=== PATIENT | male | born 1950 | race Two or more races ===

== ENCOUNTER 2016-05-20 15:44 | Emergency (ER) | payer OTHER, MEDICAID ==
[~2016-05-20] VITALS: Ht 182.9 cm; Wt 83.9 kg
[~2016-05-20 15:44] MED LIST: BACL10TA; CYCL1TAB18; INSLANTI
[2016-05-20] MEDS ORDERED: SODIUM CHLORIDE 0.9% 1,000 ML IV ONE (16:06)
[2016-05-20] MEDS ORDERED: LIDOCAINE 1% HCL (LOCAL ANESTH.) INJ 20ML MDV ONE (16:11)
[2016-05-20] MEDS ORDERED: TETANUS-DIPTH-ACEL PERTUSSIS 0.5ML SYRG IM ONE (16:15)
[2016-05-20] MEDS ORDERED: cefTRIAXone 1GM/50ML D5W 50 ML IV ONE (16:15)
[2016-05-20 16:41] LABS: Basophils # (auto) 0.1 uL; Basophils % (auto) 0.4 % (0.0-2.0); Eosinophils # (auto) 0.1 uL; Eosinophils % (auto) 0.5 % (0.0-7.0); Hematocrit 42.2 % (41.0-53.0); Hemoglobin 13.5 g/dL (13.5-17.5); Lymphocytes # (auto) 0.9 uL; Lymphocytes % (auto) 6.6 % (10.0-50.0); Mean Corpuscular Hemoglobin 29.8 pg (28.0-32.0); Mean Corpuscular Hgb Conc. 32.1 g/dL (32.0-36.0); Mean Corpuscular Volume 92.8 fL (80.0-100.0); Mean Platelet Volume 7.8 fL (7.4-10.4); Monocytes # (auto) 0.8 uL; Monocytes % (auto) 6.1 % (0.0-12.0); Neutrophils # (auto) 11.8 uL; Neutrophils % (auto) 86.4 % (37.0-80.0); Platelet Count (auto) 289 10^3/uL (140-450); Red Cell Distribution Width 12.8 % (11.6-16.0); SUSPECT VIEW TRANSMISSION; White Blood Cell 13.7 10^3/uL (4.4-10.8)
[2016-05-20 16:44] LABS: BUN/Creatinine Ratio 18.3; Calcium 8.6 mg/dL (8.5-10.1)
[2016-05-20 16:46] LABS: INR 1.04 (0.9-1.15); Partial Thromboplastin Time 29.9 sec (22.64-33.71); Prothrombin Time 10.7 sec (9.37-12.3)
[2016-05-20 16:50] LABS: Bilirubin, Total 0.5 mg/dL (0.2-1.0); Total Protein 8.2 g/dL (6.4-8.2)
[2016-05-20 17:00] VITALS: BP 158/83
[2016-05-20] MEDS ORDERED: metroNIDAZOLE 500 MG TAB PO ONE (17:30)
[2016-05-20] MEDS ORDERED: HYDROcodone-ACET 10/325MG TAB PO ONE (17:30)
== END 2016-05-20 18:19 | disposition home or self-care (01) ==
LOC: ER 15:48
DX: S71.111A Laceration without foreign body, right thigh, initial encounter (principal); F17.210 Nicotine dependence, cigarettes, uncomplicated; E11.9 Type 2 diabetes mellitus without complications; E78.5 Hyperlipidemia, unspecified; Z23 Encounter for immunization; W45.8XXA Other foreign body or object entering through skin, initial encounter; Y93.89 Activity, other specified; Y99.8 Other external cause status; Y92.89 Other specified places as the place of occurrence of the external cause
CPT/HCPCS: 12037; 36415; 73552; 80053; 84484; 85025; 85610; 85730; 90471; 90715; 96365; 99285; J0696; J2001; J7030

== ENCOUNTER 2016-07-20 13:16 | Emergency (ER) | payer OTHER, MEDICAID ==
[~2016-07-20] VITALS: Ht 182.9 cm; Wt 86.2 kg
[2016-07-20 13:57] VITALS: BP 130/78
== END 2016-07-20 15:17 | disposition home or self-care (01) ==
LOC: ER 13:16
DX: S71.111D Laceration without foreign body, right thigh, subsequent encounter (principal); Z76.0 Encounter for issue of repeat prescription; F17.210 Nicotine dependence, cigarettes, uncomplicated; E11.9 Type 2 diabetes mellitus without complications; E78.5 Hyperlipidemia, unspecified; Z79.4 Long term (current) use of insulin

== ENCOUNTER → 2022-09-17 | Outpatient (CLI) | payer OTHER ==
[~2022-09-17] MED LIST changes: +CYCL-839; -CYCL1TAB18
[2022-09-17 09:38] LABS: Basophils # (auto) 0 10 ^3/uL (0-0.2); Basophils % (auto) 0.8 % (0.0-2.0); Eosinophils # (auto) 0.3 10 ^3/uL (0-0.8); Eosinophils % (auto) 5.1 % (0.0-7.0); Hematocrit 32.6 % (41.0-53.0); Hemoglobin 10.7 g/dL (13.5-17.5); Lymphocytes # (auto) 1.6 10 ^3/uL (0.4-5.4); Lymphocytes % (auto) 25.2 % (10.0-50.0); Mean Corpuscular Hgb Conc. 32.8 g/dL (32.0-36.0); Mean Corpuscular Volume 94.5 fL (80.0-100.0); Monocytes # (auto) 0.5 10 ^3/uL (0-1.3); Monocytes % (auto) 7.3 % (0.0-12.0); Neutrophils # (auto) 3.9 10 ^3/uL (1.6-8.6); Neutrophils % (auto) 61.6 % (37.0-80.0); Nucleated Red Blood Cells % 0.1 %; Red Blood Cells 3.45 10^6/uL (4.5-5.90); Red Cell Distribution Width 14.7 % (11.8-14.3); White Blood Cell 6.3 10^3/uL (4.4-10.8)
[2022-09-17 09:43] LABS: Urine Bacteria NONE SEEN /hpf (None Seen); Urine Blood Negative /uL (Negative); Urine Specific Gravity 1.011 (1.001-1.035); Urine WBC <1 /hpf (0 - 3)
[2022-09-17 10:39] LABS: Potassium 5.3 mmol/L (3.5-5.1)
[2022-09-17 10:50] LABS: Albumin 3.4 g/dL (3.4-5.0); BUN/Creatinine Ratio 20.6 (10.0-20.0); Bilirubin, Total 0.3 mg/dL (0.2-1.0); Calcium 8.5 mg/dL (8.5-10.1); Total Protein 6.6 g/dL (6.4-8.2)
== END | disposition home or self-care (01) ==
LOC: LAB 08:53
PROVIDERS: ATTEND Nurse Practitioner
DX: I10 Essential (primary) hypertension (principal); E11.9 Type 2 diabetes mellitus without complications
CPT/HCPCS: 36415; 80053; 80061; 81001; 82043; 83036; 84443; 85025

== ENCOUNTER 2022-11-26 15:50 | Emergency (ER) | payer OTHER ==
[~2022-11-26] VITALS: Ht 182.9 cm; Wt 70.4 kg
[2022-11-26 16:15] VITALS: BP 114/65; PULSE 59; RESP 16; O2SAT 97
[2022-11-26 16:52] LABS: Urine Bacteria MOD /hpf (None Seen); Urine Blood 3+ /uL (Negative); Urine Budding Yeast FEW /hpf (None Seen); Urine Clarity HAZY (Clear); Urine Color Orange (Yellow); Urine Mucus FEW (None Seen); Urine Protein, UAD 2+ (Negative); Urine Specific Gravity 1.022 (1.001-1.035); Urine Urobilinogen Normal (Negative); Urine WBC 163 /hpf (0 - 3); Urine pH 5.5 (5.0-8.0)
[2022-11-26] MEDS ORDERED: CEPH500C PO (19:22)
== END 2022-11-26 22:02 | disposition home or self-care (01) ==
LOC: ER 15:50
DX: T83.098A Other mechanical complication of other urinary catheter, initial encounter (principal); E11.9 Type 2 diabetes mellitus without complications; I10 Essential (primary) hypertension; E78.5 Hyperlipidemia, unspecified; F17.210 Nicotine dependence, cigarettes, uncomplicated; Z98.890 Other specified postprocedural states; Z79.899 Other long term (current) drug therapy
CPT/HCPCS: 81001

== ENCOUNTER 2022-12-16 21:39 | Inpatient (IN) | payer OTHER, MEDICAID ==
[~2022-12-16] VITALS: Ht 182.9 cm; Wt 82.7 kg
[~2022-12-16 21:39] MED LIST changes: +CEPH500C PO
[2022-12-16 23:15] LABS: Basophils # (auto) 0.1 10 ^3/uL (0-0.2); Basophils % (auto) 0.7 % (0.0-2.0); Eosinophils # (auto) 0.5 10 ^3/uL (0-0.8); Eosinophils % (auto) 5.6 % (0.0-7.0); Lymphocytes # (auto) 2.4 10 ^3/uL (0.4-5.4); Lymphocytes % (auto) 28.3 % (10.0-50.0); Mean Corpuscular Hemoglobin 30.2 pg (28.0-32.0); Mean Corpuscular Hgb Conc. 32.5 g/dL (32.0-36.0); Monocytes # (auto) 0.5 10 ^3/uL (0-1.3); Monocytes % (auto) 6.3 % (0.0-12.0); Neutrophils % (auto) 59.1 % (37.0-80.0); Red Blood Cells 3.98 10^6/uL (4.5-5.90); Red Cell Distribution Width 14.3 % (11.8-14.3); White Blood Cell 8.4 10^3/uL (4.4-10.8)
[2022-12-16 23:25] LABS: Alanine Aminotransferase 149 U/L (7-40); Albumin 4.4 g/dL (3.2-4.8); Alkaline Phosphatase 222 U/L (46-116); Anion Gap 8 (5-15); Aspartate Aminotransferase 65 U/L (13-40); BUN/Creatinine Ratio 20.9 (10.0-20.0); Blood Urea Nitrogen 32 mg/dL (9-23); Calcium 9.6 mg/dL (8.7-10.4); Carbon Dioxide 22 mmol/L (20-30); Chloride 103 mmol/L (98-107); Glucose 391 mg/dL (74-106); Sodium 133 mmol/L (136-145)
[2022-12-16 23:26] LABS: Bilirubin, Total 0.3 mg/dL (0.2-1.0); Total Protein 7.7 g/dL (5.7-8.2)
[2022-12-17] MEDS ORDERED: LACTATED RINGER'S 1,000 ML IV ONE (05:00)
[2022-12-17 07:51] VITALS: PULSE 57; RESP 17; O2SAT 98
[2022-12-17] MEDS ORDERED: MORPHINE SULFATE INJ 2 MG/ml SYRG IV PRN (09:15)
[2022-12-17] MEDS ORDERED: ACETAMINOPHEN 325 MG TAB PO PRN (09:15)
[2022-12-17] MEDS ORDERED: NITROGLYCERIN 0.4 MG SL TAB SL PRN (09:15)
[2022-12-17] MEDS: SODIUM CHLORIDE 0.9% 1,000 ML IV SCH ×3 (09:15→14:12)
[2022-12-17] MEDS: ENOXAPARIN SOD 40 MG/0.4 ML SYRINGE SC SCH (10:00)
[2022-12-17] MEDS ORDERED: DEXTROSE (50%) 50ML SYRG IV PRN (10:15)
[2022-12-17 10:21] LABS: Urine Bacteria NONE SEEN /hpf (None Seen); Urine Blood 3+ /uL (Negative); Urine Budding Yeast FEW /hpf (None Seen); Urine Clarity HAZY (Clear); Urine Color Orange (Yellow); Urine Protein, UAD 2+ (Negative); Urine Specific Gravity 1.025 (1.001-1.035); Urine Urobilinogen Normal (Negative); Urine WBC 193 /hpf (0 - 3); Urine pH 5.5 (5.0-8.0)
[2022-12-17] MEDS: InsuLIN REG 1unit/0.01ml Soln (100units/ml) SC SCH ×3 (10:50→22:03)
[2022-12-17] MEDS: ACCU-CHEK COMFORT CURVE STRIP VI SCH ×3 (11:45→21:44)
[2022-12-17 12:17] LABS: Hepatitis B Surface Antigen Negative (Negative)
[2022-12-17 12:38] LABS: Hepatitis A Ab IgM Negative; Hepatitis B Core IgM Negative
[2022-12-17 12:39] LABS: Hepatitis C Antibody Negative (Negative)
[2022-12-17 15:54] LABS: Anion Gap 5 (5-15); Carbon Dioxide 23 mmol/L (20-30); Chloride 106 mmol/L (98-107); Potassium 4.1 mmol/L (3.5-5.1); Sodium 134 mmol/L (136-145)
[2022-12-17 15:55] LABS: Calcium 9.1 mg/dL (8.7-10.4)
[2022-12-17 16:00] LABS: BUN/Creatinine Ratio 19.5 (10.0-20.0); Blood Urea Nitrogen 30 mg/dL (9-23); Glucose 331 mg/dL (74-106)
[2022-12-17 16:07] VITALS: PULSE 53; RESP 18; O2SAT 96
[2022-12-17 20:10] VITALS: PULSE 53; RESP 18; O2SAT 96
[2022-12-17] MEDS ORDERED: LEVO100T8 PO (20:37)
[2022-12-17] MEDS ORDERED: DAPA1TAB4 PO (20:37)
[2022-12-17] MEDS ORDERED: LISI-275 PO (20:37)
[2022-12-17] MEDS ORDERED: ATOR40TA52 PO (20:37)
[2022-12-17 22:00] VITALS: BP 120/64; PULSE 53; RESP 18; TEMP 98; O2SAT 96
[2022-12-18 05:00] VITALS: BP 118/77; PULSE 57; RESP 17; TEMP 98.1; O2SAT 98
[2022-12-18] MEDS: InsuLIN REG 1unit/0.01ml Soln (100units/ml) SC SCH ×3 (06:12→18:12)
[2022-12-18 06:13] LABS: Basophils # (auto) 0.1 10 ^3/uL (0-0.2); Basophils % (auto) 0.9 % (0.0-2.0); Eosinophils # (auto) 0.5 10 ^3/uL (0-0.8); Eosinophils % (auto) 5.9 % (0.0-7.0); Hematocrit 33.7 % (41.0-53.0); Lymphocytes # (auto) 2.5 10 ^3/uL (0.4-5.4); Mean Corpuscular Hemoglobin 30.8 pg (28.0-32.0); Mean Corpuscular Hgb Conc. 32.7 g/dL (32.0-36.0); Mean Corpuscular Volume 93.9 fL (80.0-100.0); Monocytes # (auto) 0.5 10 ^3/uL (0-1.3); Neutrophils # (auto) 4.9 10 ^3/uL (1.6-8.6); Neutrophils % (auto) 58.2 % (37.0-80.0); Nucleated Red Blood Cells % 0.1 %; Red Blood Cells 3.59 10^6/uL (4.5-5.90); Red Cell Distribution Width 14.4 % (11.8-14.3); White Blood Cell 8.5 10^3/uL (4.4-10.8)
[2022-12-18] MEDS: ACCU-CHEK COMFORT CURVE STRIP VI SCH ×3 (06:13→18:11)
[2022-12-18 06:36] LABS: Alanine Aminotransferase 92 U/L (7-40); Albumin 3.6 g/dL (3.2-4.8); Alkaline Phosphatase 169 U/L (46-116); Anion Gap 8 (5-15); Aspartate Aminotransferase 32 U/L (13-40); BUN/Creatinine Ratio 23.7 (10.0-20.0); Blood Urea Nitrogen 32 mg/dL (9-23); Calcium 8.9 mg/dL (8.7-10.4); Carbon Dioxide 21 mmol/L (20-30); Chloride 110 mmol/L (98-107); Potassium 3.8 mmol/L (3.5-5.1); Sodium 139 mmol/L (136-145)
[2022-12-18] MEDS: SODIUM CHLORIDE 0.9% 1,000 ML IV SCH (06:36)
[2022-12-18 06:37] LABS: Bilirubin, Total 0.3 mg/dL (0.2-1.0); Total Protein 6.3 g/dL (5.7-8.2)
[2022-12-18 06:40] LABS: Glucose 123 mg/dL (74-106)
[2022-12-18 08:00] VITALS: BP 122/64; PULSE 50; PULSE 55; RESP 22; TEMP 98.6; O2SAT 100
[2022-12-18] MEDS: ENOXAPARIN SOD 40 MG/0.4 ML SYRINGE SC SCH (10:03)
[2022-12-18 13:00] VITALS: BP 119/61; PULSE 55; RESP 20; TEMP 98.6; O2SAT 97
[2022-12-18] MEDS ORDERED: cefTRIAXone 1GM/50ML D5W 50 ML IV SCH (13:30)
[2022-12-18] MEDS ORDERED: INSUINJ37 SC (14:20)
[2022-12-18] MEDS ORDERED: LISI-275 PO (14:20)
[2022-12-18] MEDS ORDERED: FLUC200T PO (14:20)
[2022-12-18] MEDS ORDERED: CEPH250C PO (14:20)
[2022-12-18] MEDS ORDERED: DAPA1TAB4 PO (14:20)
[2022-12-18] MEDS ORDERED: TAMS-35 PO (14:20)
[2022-12-18 17:00] VITALS: BP 117/58; PULSE 55; RESP 20; TEMP 98.6; O2SAT 94
== END 2022-12-18 19:00 | disposition home or self-care (01) | DRG 683 ==
LOC: ER 21:39 → TELE 12-17 09:15 → TELE-CENTR 12-17 15:40
PROVIDERS: ADMIT Internal Medicine; ATTEND Student in an Organized Health Care Education/Training Program
DX: N17.9 Acute kidney failure, unspecified (principal); N39.0 Urinary tract infection, site not specified; E11.65 Type 2 diabetes mellitus with hyperglycemia; E11.22 Type 2 diabetes mellitus with diabetic chronic kidney disease; E78.5 Hyperlipidemia, unspecified; E86.0 Dehydration; F17.210 Nicotine dependence, cigarettes, uncomplicated; I12.9 Hypertensive chronic kidney disease with stage 1 through stage 4 chronic kidney disease, or unspecified chronic kidney disease; N18.9 Chronic kidney disease, unspecified; Z96.649 Presence of unspecified artificial hip joint; M62.81 Muscle weakness (generalized); R79.89 Other specified abnormal findings of blood chemistry; R74.01 Elevation of levels of liver transaminase levels
CPT/HCPCS: 36415; 76705; 76856; 80048; 80053; 80074; 81001; 82306; 82607; 82962; 83036; 83605; 83735; 83880; 83930; 84484; 85025; 87040; 87081; 87086; 87088; 87186; 96360; 96361; 96372; 97163; G0378; J0696; J1815

== ENCOUNTER → 2023-03-07 | Outpatient (CLI) | payer OTHER ==
[~2023-03-07] MED LIST changes: +ATOR40TA52 PO; -BACL10TA; +CEPH250C PO; -CEPH500C PO; +DAPA1TAB4 PO; +FLUC200T PO; -INSLANTI; +INSUINJ37 SC; +LEVO100T8 PO; +LISI-275 PO; +TAMS-35 PO
== END | disposition home or self-care (01) ==
LOC: XYW 10:29
PROVIDERS: ATTEND Student in an Organized Health Care Education/Training Program
DX: Z01.810 Encounter for preprocedural cardiovascular examination (principal); I11.9 Hypertensive heart disease without heart failure
CPT/HCPCS: 93306

== ENCOUNTER 2023-04-11 07:00 | Emergency (ER) | payer OTHER ==
[~2023-04-11] VITALS: Ht 165.1 cm; Wt 69.9 kg
[2023-04-11 08:01] VITALS: BP 143/97; PULSE 64; RESP 18; TEMP 98; O2SAT 97
[2023-04-11] MEDS ORDERED: CIPR-173 PO (08:37)
== END 2023-04-11 08:50 | disposition home or self-care (01) ==
LOC: ER 07:00
DX: T83.098A Other mechanical complication of other urinary catheter, initial encounter (principal); N39.0 Urinary tract infection, site not specified; I10 Essential (primary) hypertension; E11.9 Type 2 diabetes mellitus without complications; E78.5 Hyperlipidemia, unspecified; F17.210 Nicotine dependence, cigarettes, uncomplicated; Z46.6 Encounter for fitting and adjustment of urinary device; Z79.899 Other long term (current) drug therapy; Y92.89 Other specified places as the place of occurrence of the external cause
CPT/HCPCS: 51702; 81002

== ENCOUNTER → 2023-04-29 | Outpatient (CLI) | payer OTHER ==
[~2023-04-29] VITALS: Ht 172.7 cm; Wt 73.0 kg
[~2023-04-29] MED LIST changes: +ADENOSINE 61 MG in GIVE UN-DILUTED 0 ML IV STA; +CIPR-173 PO
== END | disposition home or self-care (01) ==
LOC: XYW 07:48
PROVIDERS: ATTEND Student in an Organized Health Care Education/Training Program
DX: Z01.810 Encounter for preprocedural cardiovascular examination (principal); R06.02 Shortness of breath; I10 Essential (primary) hypertension; E11.65 Type 2 diabetes mellitus with hyperglycemia; E78.5 Hyperlipidemia, unspecified; F15.10 Other stimulant abuse, uncomplicated; Z79.4 Long term (current) use of insulin
CPT/HCPCS: 78452; 93017; A9500; J0153

== ENCOUNTER → 2023-07-23 | Outpatient (CLI) | payer OTHER ==
[~2023-07-23] MED LIST changes: -ADENOSINE 61 MG in GIVE UN-DILUTED 0 ML IV STA; -CEPH250C PO; -CIPR-173 PO; +FER325T PO; +HYDR-4924 PO; +SEMA7TAB2 PO
[2023-07-24 08:06] LABS: PSA Free 0.78 ng/mL; Prostate Specific Antigen 5.3 ng/mL (0.0-4.0)
== END | disposition home or self-care (01) ==
LOC: LAB 09:22
PROVIDERS: ATTEND Nurse Practitioner Family
DX: C61 Malignant neoplasm of prostate (principal)
CPT/HCPCS: 84153; 84154

== ENCOUNTER → 2023-07-30 | Outpatient (CLI) | payer OTHER | END | disposition home or self-care (01) | LOC: LAB 09:41 | PROVIDERS: ATTEND Urology | DX: C61 Malignant neoplasm of prostate (principal) | CPT/HCPCS: 36415; 82565; 84520 ==

== ENCOUNTER → 2023-08-13 | Outpatient (CLI) | payer OTHER | END | disposition home or self-care (01) | LOC: XYW 10:34 | PROVIDERS: ATTEND Urology | DX: C61 Malignant neoplasm of prostate (principal) | CPT/HCPCS: 78306; A9503 ==

== ENCOUNTER → 2024-04-07 | Outpatient (CLI) | payer OTHER ==
[2024-04-07 10:04] LABS: Basophils # (auto) 0 10 ^3/uL (0-0.2); Basophils % (auto) 0.8 % (0.0-2.0); Eosinophils # (auto) 0.2 10 ^3/uL (0-0.8); Eosinophils % (auto) 4.4 % (0.0-7.0); Hematocrit 34.1 % (41.0-53.0); Hemoglobin 11.4 g/dL (13.5-17.5); Lymphocytes # (auto) 1.2 10 ^3/uL (0.4-5.4); Lymphocytes % (auto) 23.1 % (10.0-50.0); Mean Corpuscular Hemoglobin 32.1 pg (28.0-32.0); Mean Corpuscular Hgb Conc. 33.5 g/dL (32.0-36.0); Mean Corpuscular Volume 95.9 fL (80.0-100.0); Monocytes # (auto) 0.3 10 ^3/uL (0-1.3); Monocytes % (auto) 6.4 % (0.0-12.0); Neutrophils # (auto) 3.4 10 ^3/uL (1.6-8.6); Neutrophils % (auto) 65.3 % (37.0-80.0); Nucleated Red Blood Cells % 0.1 %; Platelet Count (auto) 215 10^3/uL (140-450); Red Blood Cells 3.56 10^6/uL (4.5-5.90); Red Cell Distribution Width 14.1 % (11.8-14.3); White Blood Cell 5.2 10^3/uL (4.4-10.8)
[2024-04-07 11:09] LABS: Creatinine, Urine 93.64 mg/dL (30.0-125.0)
[2024-04-07 11:16] LABS: Albumin 4.1 g/dL (3.2-4.8); Anion Gap 10 (5-15); Aspartate Aminotransferase 25 U/L (13-40); BUN/Creatinine Ratio 18.5 (10.0-20.0); Bilirubin, Total 0.4 mg/dL (0.2-1.0); Calcium 9.8 mg/dL (8.7-10.4); Cholesterol 84 mg/dL (< 200); HDL Cholesterol 43 mg/dL (40-59); LDL Cholesterol 28 mg/dL (< 100); Potassium 4.7 mmol/L (3.5-5.1); Sodium 141 mmol/L (136-145); Triglycerides 71 mg/dL (< 150)
[2024-04-07 11:18] LABS: Carbon Dioxide 19 mmol/L (20-31); Chloride 112 mmol/L (98-107); Glucose 130 mg/dL (74-106)
[2024-04-07 11:19] LABS: Alanine Aminotransferase 67 U/L (7-40); Alkaline Phosphatase 152 U/L (46-116); Blood Urea Nitrogen 29 mg/dL (9-23)
[2024-04-08 07:06] LABS: PSA Free 0.23 ng/mL; Prostate Specific Antigen 1.3 ng/mL (0.0-4.0)
== END | disposition home or self-care (01) ==
LOC: LAB 09:29
PROVIDERS: ATTEND Nurse Practitioner Family
DX: Z00.00 Encounter for general adult medical examination without abnormal findings (principal); C61 Malignant neoplasm of prostate; E11.42 Type 2 diabetes mellitus with diabetic polyneuropathy; E11.22 Type 2 diabetes mellitus with diabetic chronic kidney disease; N18.31 Chronic kidney disease, stage 3a
CPT/HCPCS: 36415; 80053; 80061; 82043; 82306; 82570; 83036; 84154; 84443; 85025

== ENCOUNTER 2024-09-24 09:19 | Outpatient (CLI) | payer OTHER | END 2024-09-24 17:00 | disposition home or self-care (01) | LOC: LAB 09:19 | PROVIDERS: ATTEND Radiology Radiation Oncology | DX: C61 Malignant neoplasm of prostate (principal) | CPT/HCPCS: 84153 ==

== ENCOUNTER 2024-11-02 09:34 | Outpatient (CLI) | payer OTHER ==
[2024-11-02 10:02] LABS: Hematocrit 30.6 % (41.0-53.0); Hemoglobin 10.2 g/dL (13.5-17.5); Mean Corpuscular Hemoglobin 32.2 pg (28.0-32.0); Mean Corpuscular Volume 96.3 fL (80.0-100.0); Nucleated Red Blood Cells % 0.0 %
[2024-11-02 10:43] LABS: Anion Gap 8.0 (5-15); Carbon Dioxide 21.0 mmol/L (20-31)
[2024-11-02 10:44] LABS: Calcium 9.2 mg/dL (8.7-10.4)
[2024-11-02 10:49] LABS: BUN/Creatinine Ratio 15.2 (10.0-20.0); Blood Urea Nitrogen 23.0 mg/dL (9-23)
[2024-11-02 10:51] LABS: Albumin 4.3 g/dL (3.2-4.8)
[2024-11-02 11:10] LABS: Sodium 146.0 mmol/L (136-145)
[2024-11-02 11:12] LABS: Chloride 117.0 mmol/L (98-107); Glucose 143.0 mg/dL (74-106); Microalb/Creat Ratio, Urine 254.0
[2024-11-02 11:17] LABS: Urine Protein, UAD TRACE (Negative)
[2024-11-02 11:20] LABS: Uric Acid 6.1 mg/dL (3.7-9.2)
[2024-11-02 11:28] LABS: Potassium 5.9 mmol/L (3.5-5.1)
== END 2024-11-02 17:00 | disposition home or self-care (01) ==
LOC: LAB 09:34
PROVIDERS: ATTEND Internal Medicine
DX: I13.0 Hypertensive heart and chronic kidney disease with heart failure and stage 1 through stage 4 chronic kidney disease, or unspecified chronic kidney disease (principal); N18.32 Chronic kidney disease, stage 3b; I50.9 Heart failure, unspecified; E61.2 Magnesium deficiency; E87.5 Hyperkalemia; E61.1 Iron deficiency; E78.5 Hyperlipidemia, unspecified; E87.70 Fluid overload, unspecified; M10.9 Gout, unspecified; E21.3 Hyperparathyroidism, unspecified; D63.1 Anemia in chronic kidney disease; Z94.0 Kidney transplant status; Z79.899 Other long term (current) drug therapy
CPT/HCPCS: 36415; 80069; 81001; 82043; 82306; 82570; 83036; 83970; 84550; 85025